=== PATIENT | male | born 1980 | race Two or more races ===

== ENCOUNTER 2020-08-13 10:07 | Emergency (ER) | payer OTHER ==
[~2020-08-13] VITALS: Ht 157.5 cm; Wt 69.0 kg
[2020-08-13] MEDS ORDERED: BACITRACIN 0.9 GM PACKET OINTMENT TP ONE (11:30)
[2020-08-13] MEDS ORDERED: IBUPROFEN 600 MG TABLET PO ONE (11:30)
[2020-08-13] MEDS ORDERED: PERTUSS(ACELL),DIPH,TET VAC/PF 0.5 ML VIAL IM ONE (11:30)
[2020-08-13] MEDS ORDERED: CeFAZolin 1 GM/DEXTROSE 50 ML IV ONE (12:45)
[2020-08-13 15:05] VITALS: BP 106/55
== END 2020-08-13 15:54 | disposition short-term general hospital (02) ==
LOC: EMS 10:07
DX: S01.311A Laceration without foreign body of right ear, initial encounter (principal); Y35.811A Legal intervention involving manhandling, law enforcement official injured, initial encounter; Y93.89 Activity, other specified; Y92.89 Other specified places as the place of occurrence of the external cause; Y99.8 Other external cause status
CPT/HCPCS: 71046; 72100; 90471; 90715; 96365; 99285; J0690